=== PATIENT | female | born 1975 | race Caucasian/White ===

== ENCOUNTER → 2016-11-23 | Outpatient (CLI) | payer OTHER ==
[~2016-11-23] MED LIST: ATIVAN1 MG PO; PREDNISONE10 MG PO; VICODIN 5/500 505 MG PO; ZITHROMAX Z PA250 MG PO
== END | disposition home or self-care (01) ==
LOC: RAD 12:16
DX: J40 Bronchitis, not specified as acute or chronic (principal); R07.89 Other chest pain; R09.89 Other specified symptoms and signs involving the circulatory and respiratory systems

== ENCOUNTER → 2017-07-23 | Outpatient (CLI) | payer OTHER | END | disposition home or self-care (01) | LOC: MRI 08:39 | DX: S83.242A Other tear of medial meniscus, current injury, left knee, initial encounter (principal); X58.XXXA Exposure to other specified factors, initial encounter; Y93.9 Activity, unspecified; Y92.89 Other specified places as the place of occurrence of the external cause; Y99.8 Other external cause status ==

== ENCOUNTER → 2017-08-05 | Outpatient (CLI) | payer OTHER | END | disposition home or self-care (01) | LOC: ORTHO 00:21 | DX: S89.92XD Unspecified injury of left lower leg, subsequent encounter (principal); X58.XXXD Exposure to other specified factors, subsequent encounter ==

== ENCOUNTER → 2017-08-19 | Outpatient (CLI) | payer OTHER ==
[~2017-08-19] MED LIST changes: +CELECOXIB200 M1 PO; +SHAROBEL0.35 MG PO
[2017-08-19 11:33] LABS: BASO % 0.4 % (0.0-1.0); EOS # 0.1 10*3/uL (0.0-0.4); EOS % 1.6 % (1.0-4.0); HEMATOCRIT 38.4 % (37.0-47.0); HEMOGLOBIN 12.9 g/dl (12.0-16.0); LYMPH # 1.9 10*3/uL (1.3-4.4); LYMPH % 37.3 % (27.0-41.0); MEAN CELL VOLUME 88.7 fl (81.0-99.0); MEAN CORPUSCULAR HGB 29.8 pg (27.0-31.0); MEAN CORPUSCULAR HGB CONC 33.6 g/dl (33.0-37.0); MEAN PLATELET VOLUME 11.2 fl (9.6-12.3); MONO # 0.4 10*3/uL (0.1-1.0); MONO % 8.9 % (3.0-9.0); NEUT # 2.6 10*3/uL (2.3-7.9); NEUT % 51.6 % (47.0-73.0); PLATELET COUNT AUTOMATED 269 10*3/uL (130-400); RED BLOOD COUNT 4.33 10*6/uL (4.10-5.10)
[2017-08-19 11:42] LABS: BUN 18 mg/dl (7-24); CHLORIDE 106 mmol/L (98-107); CREATININE 0.75 mg/dL (0.55-1.02); SODIUM 140 mmol/L (136-145)
[2017-08-19 12:01] LABS: BILIRUBIN NEGATIVE (NEGATIVE); BLOOD NEGATIVE (NEGATIVE); CLARITY SL CLOUDY (CLEAR); COLOR YELLOW (YELLOW); GLUCOSE NEGATIVE (NEGATIVE); KETONE NEGATIVE (NEGATIVE); LEUKO ESTERASE NEGATIVE (NEGATIVE); NITRITE NEGATIVE (NEGATIVE); PH 5.5 (5.0-9.0); SPECIFIC GRAVITY 1.025 (1.005-1.030); UROBILINOGEN 0.2 E.U./dl (0.2-1.0)
[2017-08-19 12:05] LABS: BACTERIA 2+; MUCOUS TRACE; RBC 0-2 rbc/hpf (0-2)
== END | disposition home or self-care (01) ==
LOC: LAB 09:17
PROVIDERS: Orthopaedic Surgery
DX: Z01.818 Encounter for other preprocedural examination (principal); M23.204 Derangement of unspecified medial meniscus due to old tear or injury, left knee; M23.201 Derangement of unspecified lateral meniscus due to old tear or injury, left knee

== ENCOUNTER → 2017-08-26 | Day surgery (SDC) | payer OTHER ==
[2017-08-19 10:14] VITALS: BP 122/78
[~2017-08-26] VITALS: Ht 162.5 cm; Wt 127.0 kg
[2017-08-26] VITALS (8 sets, daily range): BP systolic 108–135; BP diastolic 53–75
[~2017-08-26] MED LIST changes: +Percocet 325 MG1 TAB PO; +ZOFRAN4 MG PO
== END | disposition home or self-care (01) ==
LOC: SDC 08-19 09:30
DX: S83.242A Other tear of medial meniscus, current injury, left knee, initial encounter (principal); S83.282A Other tear of lateral meniscus, current injury, left knee, initial encounter; M19.90 Unspecified osteoarthritis, unspecified site; J45.909 Unspecified asthma, uncomplicated; Z98.51 Tubal ligation status; Z90.49 Acquired absence of other specified parts of digestive tract; X58.XXXA Exposure to other specified factors, initial encounter; Y93.89 Activity, other specified; Y92.89 Other specified places as the place of occurrence of the external cause; Y99.8 Other external cause status

== ENCOUNTER 2017-10-14 16:51 | Emergency (ER) | payer OTHER ==
[~2017-10-14] VITALS: Wt 124.7 kg
[2017-10-14 16:52] VITALS: BP 119/50
== END 2017-10-14 18:54 | disposition home or self-care (01) ==
LOC: ED 16:51
DX: M79.605 Pain in left leg (principal); R60.0 Localized edema; Z98.890 Other specified postprocedural states; Z98.51 Tubal ligation status; Z79.899 Other long term (current) drug therapy; Z91.018 Allergy to other foods

== ENCOUNTER → 2018-04-23 | Outpatient (CLI) | payer OTHER | END | disposition home or self-care (01) | LOC: US 08:34 | DX: E01.0 Iodine-deficiency related diffuse (endemic) goiter (principal); Z80.8 Family history of malignant neoplasm of other organs or systems ==

== ENCOUNTER → 2018-04-27 | Outpatient (CLI) | payer OTHER ==
--- NOTE | ~2018-04-27 | EKG ---
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
== END | disposition home or self-care (01) ==
LOC: CARD 10:12
DX: R10.13 Epigastric pain (principal)

== ENCOUNTER → 2019-06-13 | Outpatient (CLI) | payer OTHER | END | disposition home or self-care (01) | LOC: RAD 12:17 | DX: J69.0 Pneumonitis due to inhalation of food and vomit (principal); R06.89 Other abnormalities of breathing ==

== ENCOUNTER → 2019-06-15 | Outpatient (CLI) | payer OTHER | END | disposition home or self-care (01) | LOC: US 07:23 | DX: E04.9 Nontoxic goiter, unspecified (principal) ==

== ENCOUNTER → 2019-06-27 | Outpatient (CLI) | payer OTHER ==
[~2019-06-27] MED LIST changes: +CARAFATE1 GM/10 ML PO; +CYMBALTA60 MG PO; +HYDR25T PO; +JENCYCLA0.35 M1 PO; +PRILOSEC20 M1 PO; +PROVENTIL HFA6.7 GM INH; +VITAMIN D22000 UNIT PO; +ZYRTEC10 M3 PO
--- NOTE | 2019-06-27 08:47 | NUR ---
[facility] Outpatient MBS completed as per orders. Patient was pleasant and cooperative and reported that for the past two months she has been experiencing choking episodes, at first occurring with pizza but has progressed to items such as jello and some liquids. Patient stated that she is now only consuming liquids. She reported a weight loss of 10 lbs over the past two weeks. She also stated that food seem to stick and back up into her throat. History includes hiatal hernia, reflux, asthma and enlarged thyroid. Patient reported that her thyroid was checked last week and has not enlarged since her last exam. She also stated that she was seen by Dr. Canchola yesterday and is scheduled for EGD 07/05/19. Respiratory status was WNL at this time. She did endorse SOB when laying down. Oral musculature exam was performed and WNL. Patient was assessed with puree, solids and thin liquid during assessment. Oral and pharyngeal swallowing skills were WNL across all consistencies. Recommend patient follow as scheduled with Dr. Canchola to r/o esophageal issues. She was educated on results and penny. and verbalized understanding. Dictated report to follow. Thank you for this referral. YULI GUDINO MSCCC-AUTOMATION TECHNICIAN
== END | disposition home or self-care (01) ==
LOC: RAD/SH 07:53
DX: R13.10 Dysphagia, unspecified (principal); J69.0 Pneumonitis due to inhalation of food and vomit

== ENCOUNTER 2019-06-29 14:57 | Emergency (ER) | payer OTHER ==
[~2019-06-29] VITALS: Ht 162.5 cm; Wt 131.5 kg
[~2019-06-29 14:57] MED LIST changes: -CARAFATE1 GM/10 ML PO; -CYMBALTA60 MG PO; -HYDR25T PO; -JENCYCLA0.35 M1 PO; -PRILOSEC20 M1 PO; -PROVENTIL HFA6.7 GM INH; -VITAMIN D22000 UNIT PO; -ZYRTEC10 M3 PO
[2019-06-29 15:03] VITALS: BP 132/64
[2019-06-29 15:34] LABS: BILIRUBIN NEGATIVE (NEGATIVE); BLOOD NEGATIVE (NEGATIVE); CLARITY CLEAR (CLEAR); COLOR YELLOW (YELLOW); GLUCOSE NEGATIVE (NEGATIVE); KETONE NEGATIVE (NEGATIVE); LEUKO ESTERASE NEGATIVE (NEGATIVE); NITRITE NEGATIVE (NEGATIVE); UROBILINOGEN 0.2 E.U./dl (0.2-1.0)
[2019-06-29 15:48] LABS: EPITHELIAL CELLS 21-30; WBC 0-2 wbc/hpf (0-5)
[2019-06-29 16:32] LABS: BASO % 0.3 % (0.0-1.0); EOS # 0.1 10*3/uL (0.0-0.4); EOS % 1.2 % (1.0-4.0); HEMATOCRIT 36.4 % (37.0-47.0); HEMOGLOBIN 11.9 g/dl (12.0-16.0); LYMPH % 33.3 % (27.0-41.0); MEAN CELL VOLUME 90.5 fl (81.0-99.0); MEAN CORPUSCULAR HGB 29.6 pg (27.0-31.0); MEAN CORPUSCULAR HGB CONC 32.7 g/dl (33.0-37.0); MEAN PLATELET VOLUME 10.4 fl (9.6-12.3); MONO # 0.5 10*3/uL (0.1-1.0); MONO % 8.4 % (3.0-9.0); NEUT # 3.4 10*3/uL (2.3-7.9); NEUT % 56.6 % (47.0-73.0); PLATELET COUNT AUTOMATED 248 10*3/uL (130-400); RED BLOOD COUNT 4.02 10*6/uL (4.10-5.10); RED CELL DISTRI WIDTH 13.2 % (0-14.5)
[2019-06-29 16:57] LABS: ALBUMIN 3.5 gm/dl (3.1-4.5); ALKALINE PHOSPHATASE 70 U/L (45-117); BUN 15 mg/dl (7-24); CHLORIDE 109 mmol/L (98-107); CREATININE 0.93 mg/dL (0.55-1.02); LIPASE 102 U/L (73-393); POTASSIUM 3.9 mmol/L (3.5-5.1); SGOT/AST 15 IU/L (3-35); SGPT/ALT 29 U/L (12-78); SODIUM 141 mmol/L (136-145); TOTAL PROTEIN 6.6 gm/dL (6.4-8.2)
[2019-06-29] MEDS ORDERED: CARAFATE1 GM/10 ML PO (17:32)
== END 2019-06-29 19:01 | disposition home or self-care (01) ==
LOC: ED 14:57
PROVIDERS: Physician Assistant
DX: K29.70 Gastritis, unspecified, without bleeding (principal); J45.909 Unspecified asthma, uncomplicated; M13.862 Other specified arthritis, left knee; Z91.018 Allergy to other foods; Z79.899 Other long term (current) drug therapy; Z90.49 Acquired absence of other specified parts of digestive tract; Z86.718 Personal history of other venous thrombosis and embolism

== ENCOUNTER → 2019-07-05 | Day surgery (SDC) | payer OTHER ==
[~2019-07-05] VITALS: Ht 162.5 cm; Wt 127.0 kg
[~2019-07-05] MED LIST changes: +CARAFATE1 GM/10 ML PO; +CYMBALTA60 MG PO; +HYDR25T PO; +JENCYCLA0.35 M1 PO; +OMEPRAZOLE20 M2 PO; +PRILOSEC20 M1 PO; +PROVENTIL HFA6.7 GM INH; +VITAMIN D22000 UNIT PO; +ZYRTEC10 M3 PO
[2019-07-05 11:24] VITALS: BP 132/65
[2019-07-05 11:51] VITALS: BP 116/47
[2019-07-05 12:05] VITALS: BP 131/59
[2019-07-05 12:20] VITALS: BP 122/65
== END | disposition home or self-care (01) ==
LOC: SDC 07-03 11:45
DX: K29.50 Unspecified chronic gastritis without bleeding (principal); K21.9 Gastro-esophageal reflux disease without esophagitis; K44.9 Diaphragmatic hernia without obstruction or gangrene; J45.909 Unspecified asthma, uncomplicated; E66.01 Morbid (severe) obesity due to excess calories; Z68.42 Body mass index [BMI] 45.0-49.9, adult; Z98.890 Other specified postprocedural states; Z79.899 Other long term (current) drug therapy; Z90.49 Acquired absence of other specified parts of digestive tract; Z88.8 Allergy status to other drugs, medicaments and biological substances

== ENCOUNTER 2019-10-25 13:16 | Emergency (ER) | payer OTHER ==
[~2019-10-25] VITALS: Ht 162.5 cm; Wt 131.5 kg
[2019-10-25 13:31] VITALS: BP 149/78
[2019-10-25] MEDS ORDERED: CYCLOBENZAPRINE10 MG PO (15:47)
[2019-10-25] MEDS ORDERED: IBU800 MG PO (15:47)
[2019-10-25] MEDS ORDERED: PREDNISONE20 M1 PO (15:47)
== END 2019-10-25 15:49 | disposition home or self-care (01) ==
LOC: ED 13:16
DX: S39.012A Strain of muscle, fascia and tendon of lower back, initial encounter (principal); J45.909 Unspecified asthma, uncomplicated; M19.90 Unspecified osteoarthritis, unspecified site; Z91.018 Allergy to other foods; Z79.899 Other long term (current) drug therapy; Z79.2 Long term (current) use of antibiotics; X50.9XXA Other and unspecified overexertion or strenuous movements or postures, initial encounter; Y93.89 Activity, other specified; Y92.89 Other specified places as the place of occurrence of the external cause; Y99.8 Other external cause status

== ENCOUNTER → 2020-05-07 | Outpatient (CLI) | payer OTHER ==
[~2020-05-07] MED LIST changes: +CYCLOBENZAPRINE10 MG PO; +IBU800 MG PO; +PREDNISONE20 M1 PO
== END | disposition home or self-care (01) ==
LOC: COVID19 14:17
PROVIDERS: ATTEND Nurse Practitioner Family
DX: R05 Cough (principal); J40 Bronchitis, not specified as acute or chronic; J45.20 Mild intermittent asthma, uncomplicated; Z20.828 Contact with and (suspected) exposure to other viral communicable diseases

== ENCOUNTER → 2020-05-23 | Outpatient (CLI) | payer OTHER | END | disposition home or self-care (01) | LOC: MAMMO 07:15 | PROVIDERS: ATTEND Nurse Practitioner Family | DX: Z12.31 Encounter for screening mammogram for malignant neoplasm of breast (principal) ==

== ENCOUNTER → 2020-07-05 | Outpatient (CLI) | payer OTHER | END | disposition home or self-care (01) | LOC: RAD 09:33 | PROVIDERS: ATTEND Nurse Practitioner Family | DX: M19.012 Primary osteoarthritis, left shoulder (principal) ==

== ENCOUNTER → 2020-09-04 | Outpatient (CLI) | payer OTHER | END | disposition home or self-care (01) | LOC: MAMMO 07:36 | PROVIDERS: ATTEND Nurse Practitioner Family | DX: N64.89 Other specified disorders of breast (principal) ==

== ENCOUNTER 2020-12-14 23:09 | Emergency (ER) | payer OTHER ==
[2020-12-14 23:22] VITALS: BP 130/84
== END 2020-12-15 02:24 | disposition home or self-care (01) ==
LOC: ED 23:09
DX: S46.912A Strain of unspecified muscle, fascia and tendon at shoulder and upper arm level, left arm, initial encounter (principal); Z91.018 Allergy to other foods; Z79.899 Other long term (current) drug therapy; Z98.890 Other specified postprocedural states; Z98.51 Tubal ligation status; Z90.49 Acquired absence of other specified parts of digestive tract; W51.XXXA Accidental striking against or bumped into by another person, initial encounter; Y93.89 Activity, other specified; Y92.098 Other place in other non-institutional residence as the place of occurrence of the external cause; Y99.0 Civilian activity done for income or pay

== ENCOUNTER → 2021-01-09 | Day surgery (SDC) | payer OTHER ==
[2021-01-06 11:02] LABS: BUN 21 mg/dl (7-24); CHLORIDE 107 mmol/L (98-107); CREATININE 0.89 mg/dL (0.55-1.02); POTASSIUM 3.5 mmol/L (3.5-5.1); SODIUM 140 mmol/L (136-145)
[~2021-01-09] VITALS: Ht 162.5 cm; Wt 127.0 kg
[2021-01-09 09:15] VITALS: BP 133/69
[2021-01-09 10:35] VITALS: BP 146/77
[2021-01-09 10:50] VITALS: BP 157/70
[2021-01-09 11:05] VITALS: BP 144/64
== END | disposition home or self-care (01) ==
LOC: SDC 01-06 13:15 → LAB 00:40 → SDC 00:40 → LAB 10:30 → SDC 10:30 → LAB 13:15
PROVIDERS: ATTEND Orthopaedic Surgery
DX: G56.03 Carpal tunnel syndrome, bilateral upper limbs (principal); K21.9 Gastro-esophageal reflux disease without esophagitis; J45.909 Unspecified asthma, uncomplicated; M17.12 Unilateral primary osteoarthritis, left knee; Z86.718 Personal history of other venous thrombosis and embolism; Z79.899 Other long term (current) drug therapy; Z20.822 Contact with and (suspected) exposure to COVID-19

== ENCOUNTER → 2021-04-21 | Outpatient (CLI) | payer OTHER | END | disposition home or self-care (01) | LOC: ORTHO 01:46 | PROVIDERS: ATTEND Orthopaedic Surgery | DX: M79.641 Pain in right hand (principal) ==

== ENCOUNTER → 2021-05-15 | Day surgery (SDC) | payer OTHER ==
[2021-05-12 12:43] VITALS: BP 143/79
[~2021-05-15] VITALS: Ht 162.5 cm; Wt 129.3 kg
[2021-05-15 07:06] VITALS: BP 121/65
[2021-05-15 07:57] VITALS: BP 135/72
[2021-05-15 08:06] VITALS: BP 119/60
[2021-05-15 08:30] VITALS: BP 104/71
[2021-05-15 08:59] VITALS: BP 135/42
== END | disposition home or self-care (01) ==
LOC: SDC 05-12 12:15
PROVIDERS: ATTEND Orthopaedic Surgery
DX: G56.03 Carpal tunnel syndrome, bilateral upper limbs (principal); M79.7 Fibromyalgia; M19.90 Unspecified osteoarthritis, unspecified site; Z20.822 Contact with and (suspected) exposure to COVID-19; Z79.899 Other long term (current) drug therapy

== ENCOUNTER → 2021-08-12 | Outpatient (CLI) | payer OTHER | END | disposition home or self-care (01) | LOC: CT 09:47 | PROVIDERS: ATTEND Nurse Practitioner Family | DX: G43.009 Migraine without aura, not intractable, without status migrainosus (principal) ==

== ENCOUNTER 2022-01-30 13:12 | Emergency (ER) | payer OTHER ==
[2022-01-30 13:39] VITALS: BP 131/48
[2022-01-30] MEDS ORDERED: PROPRANOLOL HCL10 MG PO (13:48)
[2022-01-30] MEDS ORDERED: PEPCID20 MG PO (13:48)
[2022-01-30 14:12] LABS: BASO % 0.1 % (0.0-1.0); EOS # 0.1 10*3/uL (0.0-0.4); EOS % 0.7 % (1.0-4.0); HEMATOCRIT 37.6 % (37.0-47.0); LYMPH # 1.2 10*3/uL (1.3-4.4); MEAN CELL VOLUME 86.4 fl (81.0-99.0); MEAN CORPUSCULAR HGB 29.7 pg (27.0-31.0); MEAN CORPUSCULAR HGB CONC 34.3 g/dl (33.0-37.0); MEAN PLATELET VOLUME 10.5 fl (9.6-12.3); MONO # 0.9 10*3/uL (0.1-1.0); MONO % 10.2 % (3.0-9.0); NEUT # 6.7 10*3/uL (2.3-7.9); NEUT % 75.7 % (47.0-73.0); PLATELET COUNT AUTOMATED 268 10*3/uL (130-400); RED BLOOD COUNT 4.35 10*6/uL (4.10-5.10); RED CELL DISTRI WIDTH 13.2 % (0-14.5); WHITE BLOOD COUNT 8.8 10*3/uL (4.8-10.8)
[2022-01-30 14:29] LABS: ALKALINE PHOSPHATASE 128 U/L (45-117); BUN 15 mg/dl (7-24); CHLORIDE 106 mmol/L (98-107); CREATININE 0.82 mg/dL (0.55-1.02); POTASSIUM 3.7 mmol/L (3.5-5.1); SGOT/AST 35 IU/L (3-35); SGPT/ALT 60 U/L (12-78); SODIUM 139 mmol/L (136-145); TOTAL PROTEIN 6.9 gm/dL (6.4-8.2)
[2022-01-30] MEDS ORDERED: PROVENTIL HFA6.7 GM INH (15:22)
== END 2022-01-30 17:24 | disposition home or self-care (01) ==
LOC: ED 13:12
PROVIDERS: Nurse Practitioner Family
DX: U07.1 COVID-19 (principal); Z91.018 Allergy to other foods; Z79.899 Other long term (current) drug therapy; Z98.890 Other specified postprocedural states; Z98.51 Tubal ligation status; Z90.49 Acquired absence of other specified parts of digestive tract

== ENCOUNTER 2023-01-06 11:19 | Emergency (ER) | payer OTHER ==
[~2023-01-06] VITALS: Ht 162.5 cm; Wt 136.1 kg
[~2023-01-06 11:19] MED LIST changes: +PEPCID20 MG PO; +PROPRANOLOL HCL10 MG PO
[2023-01-06 11:47] VITALS: BP 140/85
[2023-01-06 13:22] LABS: BASO % 0.3 % (0.0-1.0); EOS # 0.1 10*3/uL (0.0-0.4); EOS % 2.1 % (1.0-4.0); HEMATOCRIT 39.4 % (37.0-47.0); LYMPH # 2.1 10*3/uL (1.3-4.4); LYMPH % 35.8 % (27.0-41.0); MEAN CELL VOLUME 90.4 fl (81.0-99.0); MEAN CORPUSCULAR HGB 29.4 pg (27.0-31.0); MEAN CORPUSCULAR HGB CONC 32.5 g/dl (33.0-37.0); MEAN PLATELET VOLUME 10.2 fl (9.6-12.3); MONO # 0.6 10*3/uL (0.1-1.0); NEUT % 51.6 % (47.0-73.0); PLATELET COUNT AUTOMATED 291 10*3/uL (130-400); RED BLOOD COUNT 4.36 10*6/uL (4.10-5.10); RED CELL DISTRI WIDTH 13.2 % (0-14.5); WHITE BLOOD COUNT 5.8 10*3/uL (4.8-10.8)
[2023-01-06] MEDS ORDERED: OMEPRAZOLE40 MG PO (13:49)
[2023-01-06] MEDS ORDERED: EMGALITY120 MG/1 M SQ (13:50)
[2023-01-06] MEDS ORDERED: PEPCID40 MG PO (13:50)
[2023-01-06] MEDS ORDERED: METHOCARBAMOL500 M1 PO (13:51)
[2023-01-06] MEDS ORDERED: MELOXICAM7.5 MG PO (13:51)
[2023-01-06] MEDS ORDERED: PROPRANOLOL HCL60 MG PO (13:52)
[2023-01-06 13:53] LABS: ALKALINE PHOSPHATASE 106 U/L (46-116); BUN 17 mg/dl (9-23); CHLORIDE 108 mmol/L (98-107); POTASSIUM 3.8 mmol/L (3.4-5.1); SGPT/ALT 58 U/L (10-49); TOTAL PROTEIN 6.7 gm/dL (6.0-8.0)
[2023-01-06] MEDS ORDERED: VIBRAMYCIN100 MG PO (14:30)
[2023-01-06] MEDS ORDERED: IBUPROFEN600 MG PO (14:30)
== END 2023-01-06 14:35 | disposition home or self-care (01) ==
LOC: ED 11:19
PROVIDERS: Physician Assistant
DX: T81.41XA Infection following a procedure, superficial incisional surgical site, initial encounter (principal); N61.0 Mastitis without abscess; K21.9 Gastro-esophageal reflux disease without esophagitis; J45.909 Unspecified asthma, uncomplicated; Z86.718 Personal history of other venous thrombosis and embolism; M19.90 Unspecified osteoarthritis, unspecified site; Z91.018 Allergy to other foods; Z98.51 Tubal ligation status; Z98.890 Other specified postprocedural states

== ENCOUNTER → 2023-01-14 | Outpatient (CLI) | payer OTHER ==
[~2023-01-14] MED LIST changes: +EMGALITY120 MG/1 M SQ; +IBUPROFEN600 MG PO; +MELOXICAM7.5 MG PO; +METHOCARBAMOL500 M1 PO; +OMEPRAZOLE40 MG PO; +PEPCID40 MG PO; +PROPRANOLOL HCL60 MG PO; +VIBRAMYCIN100 MG PO
== END | disposition home or self-care (01) ==
LOC: WOUNDCARE 10:20
PROVIDERS: ATTEND Nurse Practitioner Family
DX: T81.89XA Other complications of procedures, not elsewhere classified, initial encounter (principal); S21.001A Unspecified open wound of right breast, initial encounter; C44.90 Unspecified malignant neoplasm of skin, unspecified; R73.01 Impaired fasting glucose; R11.0 Nausea; M19.90 Unspecified osteoarthritis, unspecified site; G43.909 Migraine, unspecified, not intractable, without status migrainosus; I10 Essential (primary) hypertension; K21.9 Gastro-esophageal reflux disease without esophagitis; X58.XXXA Exposure to other specified factors, initial encounter; Y93.89 Activity, other specified; Y92.89 Other specified places as the place of occurrence of the external cause; Y99.8 Other external cause status; Y92.238 Other place in hospital as the place of occurrence of the external cause; Y83.8 Other surgical procedures as the cause of abnormal reaction of the patient, or of later complication, without mention of misadventure at the time of the procedure

== ENCOUNTER → 2023-01-22 | Outpatient (CLI) | payer OTHER | END | disposition home or self-care (01) | LOC: WOUNDCARE 01:25 | PROVIDERS: ATTEND Nurse Practitioner Family | DX: T81.89XD Other complications of procedures, not elsewhere classified, subsequent encounter (principal); C44.90 Unspecified malignant neoplasm of skin, unspecified; S21.001D Unspecified open wound of right breast, subsequent encounter; L98.492 Non-pressure chronic ulcer of skin of other sites with fat layer exposed; R73.01 Impaired fasting glucose; R11.0 Nausea; G43.909 Migraine, unspecified, not intractable, without status migrainosus; I10 Essential (primary) hypertension; M19.90 Unspecified osteoarthritis, unspecified site; K21.9 Gastro-esophageal reflux disease without esophagitis; X58.XXXD Exposure to other specified factors, subsequent encounter ==

== ENCOUNTER → 2023-01-29 | Outpatient (CLI) | payer OTHER | END | disposition home or self-care (01) | LOC: WOUNDCARE 01:44 | PROVIDERS: ATTEND Nurse Practitioner Family | DX: T81.89XD Other complications of procedures, not elsewhere classified, subsequent encounter (principal); S21.001D Unspecified open wound of right breast, subsequent encounter; L98.492 Non-pressure chronic ulcer of skin of other sites with fat layer exposed; C44.90 Unspecified malignant neoplasm of skin, unspecified; R73.01 Impaired fasting glucose; R11.0 Nausea; M19.90 Unspecified osteoarthritis, unspecified site; G43.909 Migraine, unspecified, not intractable, without status migrainosus; I10 Essential (primary) hypertension; K21.9 Gastro-esophageal reflux disease without esophagitis; X58.XXXD Exposure to other specified factors, subsequent encounter; Y83.8 Other surgical procedures as the cause of abnormal reaction of the patient, or of later complication, without mention of misadventure at the time of the procedure ==

== ENCOUNTER → 2023-02-05 | Outpatient (CLI) | payer OTHER | END | disposition home or self-care (01) | LOC: WOUNDCARE 02:42 | PROVIDERS: ATTEND Nurse Practitioner Family | DX: T81.89XD Other complications of procedures, not elsewhere classified, subsequent encounter (principal); L98.492 Non-pressure chronic ulcer of skin of other sites with fat layer exposed; S21.0 Open wound of breast; C44.90 Unspecified malignant neoplasm of skin, unspecified; G43.909 Migraine, unspecified, not intractable, without status migrainosus; R73.01 Impaired fasting glucose; N64.89 Other specified disorders of breast; I10 Essential (primary) hypertension; K21.9 Gastro-esophageal reflux disease without esophagitis; M19.90 Unspecified osteoarthritis, unspecified site; X58.XXXD Exposure to other specified factors, subsequent encounter; Y83.8 Other surgical procedures as the cause of abnormal reaction of the patient, or of later complication, without mention of misadventure at the time of the procedure ==

== ENCOUNTER → 2023-02-12 | Outpatient (CLI) | payer OTHER ==
[2023-02-12 10:03] LABS: BASO % 0.2 % (0.0-1.0); EOS # 0.1 10*3/uL (0.0-0.4); HEMATOCRIT 39.5 % (37.0-47.0); LYMPH # 1.9 10*3/uL (1.3-4.4); MEAN CELL VOLUME 92.1 fl (81.0-99.0); MEAN CORPUSCULAR HGB 30.1 pg (27.0-31.0); MEAN CORPUSCULAR HGB CONC 32.7 g/dl (33.0-37.0); MEAN PLATELET VOLUME 10.5 fl (9.6-12.3); MONO # 0.5 10*3/uL (0.1-1.0); MONO % 8.2 % (3.0-9.0); NEUT # 3.1 10*3/uL (2.3-7.9); NEUT % 55.4 % (47.0-73.0); PLATELET COUNT AUTOMATED 266 10*3/uL (130-400); RED BLOOD COUNT 4.29 10*6/uL (4.10-5.10); RED CELL DISTRI WIDTH 13.4 % (0-14.5); WHITE BLOOD COUNT 5.6 10*3/uL (4.8-10.8)
[2023-02-12 10:48] LABS: ALKALINE PHOSPHATASE 105 U/L (46-116); BUN 16 mg/dl (9-23); CHLORIDE 108 mmol/L (98-107); POTASSIUM 4.2 mmol/L (3.4-5.1); SGPT/ALT 67 U/L (10-49); TOTAL PROTEIN 6.9 gm/dL (6.0-8.0)
[2023-02-17 00:06] LABS: IGG P18 AB Absent (.); IGG P23 AB Absent (.); IGG P28 AB Absent (.); IGG P30 AB Absent (.); IGG P39 AB Absent (.); IGG P41 AB Absent (.); IGG P45 AB Absent (.); IGG P58 AB Absent (.); IGG P63 AB Absent (.); IGG P66 AB Absent (.); IGM P23 AB Absent (.); IGM P39 AB Absent (.); IGM P41 AB Absent (.); LYME IGG WB INTERPRETATION Negative (.); LYME IGM WB INTERPRETATION Negative (.)
== END | disposition home or self-care (01) ==
LOC: LAB 01:36 → WOUNDCARE 01:36
PROVIDERS: Nurse Practitioner Family; ATTEND Nurse Practitioner Family
DX: T81.89XD Other complications of procedures, not elsewhere classified, subsequent encounter (principal); S21.0 Open wound of breast; L98.492 Non-pressure chronic ulcer of skin of other sites with fat layer exposed; N64.89 Other specified disorders of breast; R11.0 Nausea; R73.01 Impaired fasting glucose; C44.90 Unspecified malignant neoplasm of skin, unspecified; G43.909 Migraine, unspecified, not intractable, without status migrainosus; I10 Essential (primary) hypertension; K21.9 Gastro-esophageal reflux disease without esophagitis; M19.90 Unspecified osteoarthritis, unspecified site; X58.XXXD Exposure to other specified factors, subsequent encounter; Y83.8 Other surgical procedures as the cause of abnormal reaction of the patient, or of later complication, without mention of misadventure at the time of the procedure

== ENCOUNTER → 2023-02-19 | Outpatient (CLI) | payer OTHER | END | disposition home or self-care (01) | LOC: WOUNDCARE 01:00 | PROVIDERS: ATTEND Nurse Practitioner Family | DX: T81.89XD Other complications of procedures, not elsewhere classified, subsequent encounter (principal); S21.0 Open wound of breast; L98.492 Non-pressure chronic ulcer of skin of other sites with fat layer exposed; N64.89 Other specified disorders of breast; R73.01 Impaired fasting glucose; C44.90 Unspecified malignant neoplasm of skin, unspecified; R11.0 Nausea; G43.909 Migraine, unspecified, not intractable, without status migrainosus; I10 Essential (primary) hypertension; K21.9 Gastro-esophageal reflux disease without esophagitis; M19.90 Unspecified osteoarthritis, unspecified site; X58.XXXD Exposure to other specified factors, subsequent encounter; Y83.8 Other surgical procedures as the cause of abnormal reaction of the patient, or of later complication, without mention of misadventure at the time of the procedure ==

== ENCOUNTER 2023-04-15 17:20 | Emergency (ER) | payer OTHER ==
[2023-04-15 17:26] VITALS: BP 149/69
[2023-04-15] MEDS ORDERED: NORETHINDRONE0.35 M1 PO (19:46)
[2023-04-15 20:10] LABS: BUN 9 mg/dl (9-23); CHLORIDE 106 mmol/L (98-107); POTASSIUM 3.5 mmol/L (3.4-5.1)
== END 2023-04-15 20:11 | disposition home or self-care (01) ==
LOC: ED 17:20
PROVIDERS: Nurse Practitioner Family
DX: U07.1 COVID-19 (principal); R06.02 Shortness of breath; K21.9 Gastro-esophageal reflux disease without esophagitis; J45.909 Unspecified asthma, uncomplicated; M19.90 Unspecified osteoarthritis, unspecified site; Z91.018 Allergy to other foods; Z98.51 Tubal ligation status; Z98.890 Other specified postprocedural states; Z86.718 Personal history of other venous thrombosis and embolism

== ENCOUNTER → 2023-08-18 | Outpatient (CLI) | payer OTHER ==
[~2023-08-18] MED LIST changes: +NORETHINDRONE0.35 M1 PO
[2023-08-18 09:39] LABS: ALKALINE PHOSPHATASE 88 U/L (46-116); BUN 18 mg/dl (9-23); CHLORIDE 107 mmol/L (98-107); POTASSIUM 3.6 mmol/L (3.4-5.1); SGPT/ALT 76 U/L (5-49); TOTAL PROTEIN 6.8 gm/dL (6.0-8.0)
[2023-08-19 11:08] LABS: HBSAG Negative (Negative); HEP B CORE AB, IGM Negative (Negative); HEPATITIS C ANTIBODY Non Reactive (Non Reactive)
== END | disposition home or self-care (01) ==
LOC: US 08-17 08:00 → LAB 03:27 → US 09:30
PROVIDERS: ATTEND Nurse Practitioner Family
DX: R16.0 Hepatomegaly, not elsewhere classified (principal); K76.0 Fatty (change of) liver, not elsewhere classified; R79.89 Other specified abnormal findings of blood chemistry; Z90.49 Acquired absence of other specified parts of digestive tract

== ENCOUNTER → 2023-09-07 | Outpatient (CLI) | payer OTHER ==
[2023-09-07 09:52] LABS: BASO % 0.5 % (0.0-1.0); EOS # 0.1 10*3/uL (0.0-0.4); EOS % 2.2 % (1.0-4.0); HEMATOCRIT 40.7 % (37.0-47.0); LYMPH # 1.8 10*3/uL (1.3-4.4); LYMPH % 42.3 % (27.0-41.0); MEAN CELL VOLUME 90.4 fl (81.0-99.0); MEAN CORPUSCULAR HGB 29.3 pg (27.0-31.0); MEAN CORPUSCULAR HGB CONC 32.4 g/dl (33.0-37.0); MEAN PLATELET VOLUME 10.9 fl (9.6-12.3); MONO # 0.5 10*3/uL (0.1-1.0); MONO % 12.2 % (3.0-9.0); NEUT # 1.8 10*3/uL (2.3-7.9); NEUT % 42.8 % (47.0-73.0); PLATELET COUNT AUTOMATED 296 10*3/uL (130-400); RED CELL DISTRI WIDTH 13.4 % (0-14.5); WHITE BLOOD COUNT 4.2 10*3/uL (4.8-10.8)
[2023-09-07 10:13] LABS: ALKALINE PHOSPHATASE 85 U/L (46-116); BUN 13 mg/dl (9-23); CHLORIDE 106 mmol/L (98-107); POTASSIUM 3.4 mmol/L (3.4-5.1); SGPT/ALT 68 U/L (5-49); TOTAL PROTEIN 6.8 gm/dL (6.0-8.0)
[2023-09-08 05:07] LABS: ALPHA-1-ANTITRYPSIN, SERUM 134 mg/dL (101-187); HEPATITIS B SURFACE AB Non Reactive (.); HEPATITIS B SURFACE AG Negative (Negative)
[2023-09-08 15:07] LABS: ANTI-SMOOTH MUSCLE ANTIBODY 5 Units (0-19)
[2023-09-08 16:08] LABS: t-TRANSGLUTAMINASE (tTG) IGA <2 U/mL (0-3); t-TRANSGLUTAMINASE (tTG) IgG 2 U/mL (0-5)
[2023-09-09 00:06] LABS: ALPHA 2-MACAROGLOBULINS 157 mg/dL (110-276); ALT (SGPT) P5P 65 IU/L (0-40); APOLIPOPROEIN A-1 159 mg/dL (116-209); BILIRUBIN, TOTAL 0.3 mg/dL (0.0-1.2); CHOLESTEROL, TOTAL 217 mg/dL (100-199); GGT 94 IU/L (0-60); GLUCOSE, SERUM 117 mg/dL (70-99); HAPTOGLOBIN 78 mg/dL (42-296); TRIGLYCERIDES 85 mg/dL (0-149)
== END | disposition home or self-care (01) ==
LOC: LAB 09:11
PROVIDERS: ATTEND Nurse Practitioner Family
DX: K90.9 Intestinal malabsorption, unspecified (principal); K76.0 Fatty (change of) liver, not elsewhere classified; R74.01 Elevation of levels of liver transaminase levels

== ENCOUNTER → 2023-09-24 | Outpatient (CLI) | payer OTHER ==
[2023-09-24 10:29] LABS: B-hCG (QUALITATIVE) BORDERLINE (NEGATIVE)
== END | disposition home or self-care (01) ==
LOC: LAB 09:26
PROVIDERS: ATTEND Nurse Practitioner Women's Health
DX: N91.2 Amenorrhea, unspecified (principal)

== ENCOUNTER → 2023-10-01 | Outpatient (CLI) | payer OTHER | END | disposition home or self-care (01) | LOC: US 01:43 | PROVIDERS: ATTEND Nurse Practitioner Women's Health | DX: D25.2 Subserosal leiomyoma of uterus (principal); N91.2 Amenorrhea, unspecified; N88.8 Other specified noninflammatory disorders of cervix uteri ==

== ENCOUNTER → 2023-11-22 | Outpatient (CLI) | payer OTHER | END | disposition home or self-care (01) | LOC: RAD 16:38 | PROVIDERS: ATTEND Nurse Practitioner Family | DX: R39.15 Urgency of urination (principal); R31.9 Hematuria, unspecified; Z90.49 Acquired absence of other specified parts of digestive tract ==

== ENCOUNTER → 2023-11-22 | Outpatient (CLI) | payer OTHER | END | disposition home or self-care (01) | LOC: LAB 17:32 | PROVIDERS: ATTEND Nurse Practitioner Family | DX: R39.15 Urgency of urination (principal) ==

== ENCOUNTER → 2023-11-30 | Outpatient (CLI) | payer OTHER ==
[2023-11-30 17:31] LABS: BILIRUBIN Negative (Negative); BLOOD Negative (Negative); CLARITY Clear (Clear); COLOR Yellow (Yellow); GLUCOSE Negative (Negative); KETONE Trace (Negative); LEUKO ESTERASE Negative (Negative); NITRITE Negative (Negative); SPECIFIC GRAVITY 1.025 (1.001-1.030); UROBILINOGEN 0.2 E.U./dl (0.0-1.0)
[2023-11-30 17:49] LABS: MUCOUS 2+
== END | disposition home or self-care (01) ==
LOC: LAB 16:37
PROVIDERS: ATTEND Nurse Practitioner Family
DX: R30.0 Dysuria (principal)

== ENCOUNTER → 2024-02-15 | Outpatient (CLI) | payer OTHER ==
[2024-02-15 12:27] LABS: BILIRUBIN Negative (Negative); BLOOD Negative (Negative); CLARITY Clear (Clear); COLOR Yellow (Yellow); GLUCOSE Negative (Negative); KETONE Negative (Negative); LEUKO ESTERASE Negative (Negative); NITRITE Negative (Negative); PH 5.5 (4.5-8.0); UROBILINOGEN 0.2 E.U./dl (0.0-1.0)
[2024-02-15 13:43] LABS: BACTERIA TRACE; EPITHELIAL CELLS 0-2; WBC 0-2 wbc/hpf (0-5)
== END | disposition home or self-care (01) ==
LOC: LAB 11:45
PROVIDERS: ATTEND Nurse Practitioner Family
DX: N94.89 Other specified conditions associated with female genital organs and menstrual cycle (principal); I10 Essential (primary) hypertension; R10.9 Unspecified abdominal pain; E66.01 Morbid (severe) obesity due to excess calories; Z90.49 Acquired absence of other specified parts of digestive tract

== ENCOUNTER → 2024-03-16 | Outpatient (CLI) | payer OTHER ==
[2024-03-16 09:19] LABS: BASO % 0.3 % (0.0-1.0); EOS # 0.1 10*3/uL (0.0-0.4); EOS % 0.9 % (1.0-4.0); HEMATOCRIT 39.2 % (37.0-47.0); LYMPH # 1.2 10*3/uL (1.3-4.4); LYMPH % 17.4 % (27.0-41.0); MEAN CELL VOLUME 91.8 fl (81.0-99.0); MEAN CORPUSCULAR HGB 29.5 pg (27.0-31.0); MEAN CORPUSCULAR HGB CONC 32.1 g/dl (33.0-37.0); MEAN PLATELET VOLUME 10.7 fl (9.6-12.3); MONO # 0.5 10*3/uL (0.1-1.0); NEUT % 73.3 % (47.0-73.0); PLATELET COUNT AUTOMATED 283 10*3/uL (130-400); RED BLOOD COUNT 4.27 10*6/uL (4.10-5.10); RED CELL DISTRI WIDTH 13.1 % (0-14.5); WHITE BLOOD COUNT 6.8 10*3/uL (4.8-10.8)
[2024-03-16 09:50] LABS: ALKALINE PHOSPHATASE 100 U/L (46-116); BUN 14 mg/dl (9-23); CHLORIDE 107 mmol/L (98-107); CHOLESTEROL 184 mg/dL (<200); LDL CHOLESTEROL 105 mg/dL (9-159); POTASSIUM 3.9 mmol/L (3.4-5.1); SGPT/ALT 38 U/L (5-49); TOTAL PROTEIN 6.4 gm/dL (6.0-8.0); TRIGLYCERIDES 106 mg/dl (<150)
== END | disposition home or self-care (01) ==
LOC: LAB 08:13
PROVIDERS: ATTEND Nurse Practitioner Family
DX: Z23 Encounter for immunization (principal); I10 Essential (primary) hypertension; F43.9 Reaction to severe stress, unspecified; E66.01 Morbid (severe) obesity due to excess calories

== ENCOUNTER 2024-04-14 13:15 | Emergency (ER) | payer OTHER ==
[~2024-04-14] VITALS: Ht 162.5 cm; Wt 131.5 kg
[2024-04-14 13:45] VITALS: BP 142/92
== END 2024-04-14 15:08 | disposition home or self-care (01) ==
LOC: ED 13:15
DX: S52.511A Displaced fracture of right radial styloid process, initial encounter for closed fracture (principal); K21.9 Gastro-esophageal reflux disease without esophagitis; J45.909 Unspecified asthma, uncomplicated; M19.90 Unspecified osteoarthritis, unspecified site; Z91.018 Allergy to other foods; Z98.51 Tubal ligation status; Z90.49 Acquired absence of other specified parts of digestive tract; Z98.890 Other specified postprocedural states; Z86.718 Personal history of other venous thrombosis and embolism; W18.31XA Fall on same level due to stepping on an object, initial encounter; Y93.89 Activity, other specified; Y92.89 Other specified places as the place of occurrence of the external cause; Y99.8 Other external cause status

== ENCOUNTER → 2024-04-26 | Outpatient (CLI) | payer OTHER ==
[2024-04-26 09:29] LABS: BASO % 0.3 % (0.0-1.0); EOS # 0.1 10*3/uL (0.0-0.4); HEMATOCRIT 38.8 % (37.0-47.0); MEAN CELL VOLUME 89.8 fl (81.0-99.0); MEAN CORPUSCULAR HGB 29.4 pg (27.0-31.0); MEAN CORPUSCULAR HGB CONC 32.7 g/dl (33.0-37.0); MEAN PLATELET VOLUME 10.3 fl (9.6-12.3); MONO # 0.6 10*3/uL (0.1-1.0); MONO % 8.3 % (3.0-9.0); NEUT # 3.7 10*3/uL (2.3-7.9); NEUT % 55.4 % (47.0-73.0); PLATELET COUNT AUTOMATED 315 10*3/uL (130-400); RED BLOOD COUNT 4.32 10*6/uL (4.10-5.10); RED CELL DISTRI WIDTH 13.1 % (0-14.5); WHITE BLOOD COUNT 6.6 10*3/uL (4.8-10.8)
[2024-04-26 09:47] LABS: ALKALINE PHOSPHATASE 113 U/L (46-116); BUN 19 mg/dl (9-23); CHLORIDE 107 mmol/L (98-107); CHOLESTEROL 242 mg/dL (<200); LDL CHOLESTEROL 154 mg/dL (9-159); POTASSIUM 3.8 mmol/L (3.4-5.1); SGPT/ALT 46 U/L (5-49); TOTAL PROTEIN 6.6 gm/dL (6.0-8.0); TRIGLYCERIDES 107 mg/dl (<150)
== END | disposition home or self-care (01) ==
LOC: LAB 08:51
PROVIDERS: ATTEND Nurse Practitioner Family
DX: I10 Essential (primary) hypertension (principal); E66.01 Morbid (severe) obesity due to excess calories; J30.9 Allergic rhinitis, unspecified

== ENCOUNTER → 2024-09-08 | Outpatient (CLI) | payer OTHER ==
[2024-09-08 11:45] LABS: BASO % 0.2 % (0.0-1.0); EOS # 0.1 10*3/uL (0.0-0.4); EOS % 1.9 % (1.0-4.0); HEMATOCRIT 38.2 % (37.0-47.0); MEAN CELL VOLUME 87.8 fl (81.0-99.0); MEAN CORPUSCULAR HGB 29.4 pg (27.0-31.0); MEAN CORPUSCULAR HGB CONC 33.5 g/dl (33.0-37.0); MEAN PLATELET VOLUME 11.4 fl (9.6-12.3); MONO # 0.6 10*3/uL (0.1-1.0); MONO % 9.8 % (3.0-9.0); NEUT # 3.2 10*3/uL (2.3-7.9); NEUT % 49.3 % (47.0-73.0); PLATELET COUNT AUTOMATED 293 10*3/uL (130-400); RED BLOOD COUNT 4.35 10*6/uL (4.10-5.10); RED CELL DISTRI WIDTH 13.4 % (0-14.5); WHITE BLOOD COUNT 6.4 10*3/uL (4.8-10.8)
[2024-09-08 12:06] LABS: ALKALINE PHOSPHATASE 93 U/L (46-116); BUN 17 mg/dl (9-23); CHLORIDE 106 mmol/L (98-107); CHOLESTEROL 225 mg/dL (<200); LDL CHOLESTEROL 138 mg/dL (9-159); POTASSIUM 3.8 mmol/L (3.4-5.1); SGPT/ALT 48 U/L (5-49); TOTAL PROTEIN 6.6 gm/dL (6.0-8.0); TRIGLYCERIDES 111 mg/dl (<150)
== END | disposition home or self-care (01) ==
LOC: LAB 11:20
PROVIDERS: ATTEND Nurse Practitioner Family
DX: I10 Essential (primary) hypertension (principal); E55.9 Vitamin D deficiency, unspecified; G43.909 Migraine, unspecified, not intractable, without status migrainosus; J30.2 Other seasonal allergic rhinitis; Z76.89 Persons encountering health services in other specified circumstances; E78.2 Mixed hyperlipidemia; Z12.31 Encounter for screening mammogram for malignant neoplasm of breast; Z12.11 Encounter for screening for malignant neoplasm of colon; M79.7 Fibromyalgia; E66.01 Morbid (severe) obesity due to excess calories

== ENCOUNTER → 2024-10-03 | Outpatient (CLI) | payer OTHER | END | disposition home or self-care (01) | LOC: LAB 10:45 | PROVIDERS: ATTEND Nurse Practitioner Family | DX: R30.0 Dysuria (principal) ==

== ENCOUNTER → 2024-12-18 | Outpatient (CLI) | payer OTHER | END | disposition home or self-care (01) | LOC: MAMMO 00:46 | PROVIDERS: ATTEND Nurse Practitioner Family | DX: Z12.31 Encounter for screening mammogram for malignant neoplasm of breast (principal); R92.323 Mammographic fibroglandular density, bilateral breasts; Z76.89 Persons encountering health services in other specified circumstances ==

== ENCOUNTER → 2025-03-14 | Outpatient (CLI) | payer OTHER ==
[2025-03-14 08:25] LABS: BASO # 0.0 10*3/uL (0.0-0.1); BASO % 0.3 % (0.0-1.0); EOS # 0.2 10*3/uL (0.0-0.4); EOS % 3.1 % (1.0-4.0); MEAN CELL VOLUME 91.0 fl (81.0-99.0); MEAN CORPUSCULAR HGB 29.6 pg (27.0-31.0); MEAN PLATELET VOLUME 10.1 fl (9.6-12.3); MONO # 0.6 10*3/uL (0.1-1.0); MONO % 9.3 % (3.0-9.0); NEUT # 2.9 10*3/uL (2.3-7.9); NEUT % 49.0 % (47.0-73.0); NUCLEATED RED BLOOD CELL 0.0 % (0.0-0.0); NUCLEATED RED BLOOD CELL 0.0 10*3/uL (0.0-0.0); PLATELET COUNT AUTOMATED 269 10*3/uL (130-400); RED CELL DISTRI WIDTH 13.3 % (0-14.5)
[2025-03-14 08:45] LABS: BUN 19 mg/dl (9-23); LDL CHOLESTEROL 142 mg/dL (9-159); SGPT/ALT 51 U/L (5-49)
[2025-03-16 22:06] LABS: TESTOS, FREE 1.1 pg/mL (0.0-4.2)
== END | disposition home or self-care (01) ==
LOC: LAB 07:47
PROVIDERS: ATTEND Nurse Practitioner Family
DX: N95.1 Menopausal and female climacteric states (principal)

== ENCOUNTER → 2025-03-16 | Outpatient (CLI) | payer OTHER ==
[2025-03-16 19:52] LABS: VITAMIN D, 25-HYDROXY 58.6 ng/mL (30-100)
== END | disposition home or self-care (01) ==
LOC: RHCWE 19:03 → LAB 19:03 → ZRHCWE 19:03
PROVIDERS: ATTEND Nurse Practitioner Family
DX: R53.82 Chronic fatigue, unspecified (principal)

== ENCOUNTER 2025-04-14 09:56 | Emergency (ER) | payer OTHER ==
[~2025-04-14] VITALS: Ht 162.5 cm; Wt 136.1 kg
[2025-04-14 10:28] VITALS: BP 121/63
== END 2025-04-14 12:43 | disposition home or self-care (01) ==
LOC: ED 09:56
PROVIDERS: Student in an Organized Health Care Education/Training Program
DX: Z77.21 Contact with and (suspected) exposure to potentially hazardous body fluids (principal); Z91.018 Allergy to other foods; Z79.899 Other long term (current) drug therapy; Z98.890 Other specified postprocedural states

== ENCOUNTER → 2025-05-09 | Outpatient (CLI) | payer OTHER | END | disposition home or self-care (01) | LOC: RAD 11:28 | PROVIDERS: ATTEND Nurse Practitioner Family | DX: M19.011 Primary osteoarthritis, right shoulder (principal); M47.817 Spondylosis without myelopathy or radiculopathy, lumbosacral region; M25.511 Pain in right shoulder; M25.78 Osteophyte, vertebrae; M54.30 Sciatica, unspecified side ==